=== PATIENT | female | born 1930 | race Caucasian/White ===

== ENCOUNTER 2017-06-03 18:33 | Emergency (ER) | payer MEDICARE, BC ==
[2017-06-03] MEDS ORDERED: Sodium Chloride 0.9% 1,000 ML IV SCH (19:30)
--- NOTE | 2017-06-03 19:34 | EDM.PDOC ---
ED HPI GENERAL MEDICAL PROBLEM - General Chief Complaint: Gastrointestinal Problem Stated Complaint: [facility] Time Seen by Provider: 06/03/17 19:27 Source of Information: Reports: Patient, Family (Daughter), Old Records, RN Notes Reviewed History Limitations: Reports: No Limitations - History of Present Illness INITIAL COMMENTS - FREE TEXT/NARRATIVE: EMS arrival Chief complaint Diarrhea, weakness History of present illness 87-year-old female who lives on her own apartment, talks to her daughter daily Was well earlier today but at 2 PM started developing diarrhea, no abdominal pain no nausea no vomiting no cramping several episodes then about 5 PM she went to lay down, but felt so well she went back to the bathroom, incontinent of stool, and then continue to pass a large amount of diarrhea in the toilet. Towards the end there was some bright red bleeding with some clots. She went to stand up and felt very weak and then that herself down to the floor. When she laid down she actually bumped her personal alarm, EMS was notified as was feels a bit better now, not quite as weak. No abdominal pain No fever No sick contacts like this History of ulcerative colitis and has had some bleeding in the remote past. She stopped her ulcerative clivus medication a year ago with insurance no longer covered it. Her last colonoscopy was 6 years ago and she was told she didn't need to have it anymore. No history of peptic ulcer Does not use any NSAIDs apart from 81 mg of aspirin daily denies Pain Score (Numeric/FACES): 0 - Related Data Allergies Allergy/AdvReac Type Severity Reaction Status Date / Time niacin Allergy Rash Verified 06/03/17 18:42 pravastatin Allergy Leg Cramps Verified 06/03/17 18:42 simvastatin Allergy Leg Cramps Verified 06/03/17 18:42 Home Meds: Home Meds Aspirin 81 mg PO DAILY 03/07/13 [History] Calcium Carbonate/Vitamin D3 [Calcium 600 + Vit D Tablet] 1 tab PO DAILY [History] Carvedilol 3.125 mg PO DAILY 03/07/13 [History] Glucosamine/D3/Boswellia Mell [Glucosamine Complex Tablet] 1 tab PO DAILY 03/07 [History] Multivitamin [Multivitamins] 1 tab PO DAILY 03/07/13 [History] [place]-3/DHA/Epa/Fish Oil [Fish Oil 1,000 mg Softgel] 1 cap PO DAILY 03/07/13 [ History] Omeprazole 40 mg PO DAILY PRN 03/07/13 [History] Acyclovir [Zovirax] 1 tab PO BID 06/03/17 [History] Brinzolamide/Brimonidine Tart [Simbrinza 1%-0.2% Eye Drops] 1 drop TOP BEDTIME 06/03/17 [History] Travoprost [Travatan Z] 1 drop TOP DAILY 06/03/17 [History] prednisoLONE Acetate [Prednisolone Acetate] 1 drop TOP DAILY 06/03/17 [History] Past Medical History HEENT History: Reports: Glaucoma, Impaired Vision Cardiovascular History: Reports: High Cholesterol, Stents Gastrointestinal History: Reports: Other (See Below) Other Gastrointestinal History: hx of ulcerative cholitis 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: Musculoskeletal History: Reports: Fracture, Osteoarthritis Other Musculoskeletal History: r ankle fx Hematologic History: Reports: Blood Transfusion(s) Oncologic (Cancer) History: Reports: Other (See Below) Other Oncologic History: skin - Infectious Disease History Infectious Disease History: Reports: Chicken Pox, Measles, Mumps, Other (See Below) - Past Surgical History HEENT Surgical History: Reports: Cataract Surgery GI Surgical History: Reports: Colonoscopy Dermatological Surgical History: Reports: Skin Biopsy, Other (See Below) Social & Family History - Tobacco Use Smoking Status *Q: Never Smoker Second Hand Smoke Exposure: No - Caffeine Use Caffeine Use: Reports: Coffee, Soda, Tea - Alcohol Use Days Per Week of Alcohol Use: 0 Number of Drinks Per Day: 1 Total Drinks Per Week: 0 - Recreational Drug Use Recreational Drug Use: No ED ROS GENERAL - Review of Systems Review Of Systems: See Below Constitutional: Reports: Malaise, Weakness. Denies: Fever, Diaphoresis, Decreased Appetite HEENT: Reports: No Symptoms Respiratory: Reports: No Symptoms Cardiovascular: Reports: No Symptoms Endocrine: Reports: No Symptoms GI/Abdominal: Reports: Bloody Stool, Diarrhea. Denies: Abdominal Pain, Black Stool, Constipation, Hematemesis, Melena, Nausea, Vomiting : Reports: No Symptoms Musculoskeletal: Reports: No Symptoms Skin: Reports: Other (Recent treatment for skin lesions on her face) Neurological: Reports: Weakness (Lightheaded at home) Psychiatric: Reports: No Symptoms Immunologic: Reports: No Symptoms ED EXAM, GI/ABD - Physical Exam Exam: See Below Exam Limited By: No Limitations General Appearance: Alert, Mild Distress, Other (Looks well, elevated blood pressure other vital signs normal, no difficulty speaking or breathing) Eyes: Bilateral: Normal Appearance, EOMI Ears: Normal External Exam, Hearing Grossly Normal Nose: Normal Inspection Throat/Mouth: Normal Voice, Other (Dry mouth and tongue) Head: Atraumatic Neck: Normal Inspection, Supple. No: Lymphadenopathy (R), Lymphadenopathy (L) Respiratory/Chest: No Respiratory Distress, Lungs Clear, No Accessory Muscle Use Cardiovascular: Normal Peripheral Pulses, Regular Rate, Rhythm GI/Abdominal Exam: Normal Bowel Sounds, Soft, Non-Tender. No: Guarding, Rigid, Tender Rectal (Female) Exam: Other (2 small external skin tags, one small internal fissure right at the anal margin, no active bleeding currently) Extremities: Normal Inspection, No Pedal Edema Neurological: Alert, Oriented, Normal Cognition, No Motor/Sensory Deficits Psychiatric: Normal Mood Skin Exam: Warm, Dry, Intact, Normal Color, Other (2 abraded areas on her face from recent lesion treatment) Course - Vital Signs Last Recorded V/S: Last Vital Signs Temp 36.3 C 06/03/17 18:42 Pulse 77 06/03/17 21:16 Resp 16 06/03/17 18:42 BP 153/83 H 06/03/17 21:16 Pulse Ox 94 L 06/03/17 21:16 - Orders/Labs/Meds Orders: Active Orders 24 hr Category Date Time Status Peripheral IV Care [RC] . DIRECTED Care 06/03/17 19:28 Active Sodium Chloride 0.9% [Normal Saline] 1,000 ml Med 06/03/17 19:30 Active IV ASDIRECTED Peripheral IV Insertion Adult [OM.PC] Routine Oth 06/03/17 19:28 Ordered Medication Orders Sodium Chloride (Normal Saline) 1,000 mls @ 500 mls/hr IV ASDIRECTED [facility] Last Admin: 06/03/17 19:45 Dose: 500 mls/hr Labs: Laboratory Tests 06/03/17 06/03/17 Range/Units 19:40 19:40 WBC 8.9 (4.5-11.0) K/uL RBC 3.86 (3.30-5.50) M/uL Hgb 12.3 (12.0-15.0) g/dL Hct 37.5 (36.0-48.0) % MCV 97 (80-98) fL MCH 32 H (27-31) pg MCHC 33 (32-36) % Plt Count 262 (150-400) K/uL Sodium 142 (140-148) mmol/L Potassium 5.2 (3.6-5.2) mmol/L Chloride 107 (100-108) mmol/L Carbon Dioxide 26 (21-32) mmol/L Anion Gap 9.4 (5.0-14.0) mmol/L BUN 19 H (7-18) mg/dL Creatinine 0.8 (0.6-1.0) mg/dL Est Cr Clr Drug Dosing 37.71 mL/min Estimated GFR (MDRD) > 60 (>60) Glucose 151 H (74-106) mg/dL Calcium 8.6 (8.5-10.1) mg/dL Meds: Medications Generic Name Dose Route Start Last Admin Trade Name Freq PRN Reason Stop Dose Admin Sodium Chloride 1,000 mls @ 500 mls/hr 06/03/17 19:30 06/03/17 19:45 Normal Saline IV 500 mls/hr ASDIRECTED [facility] Administration - Re-Assessments/Exams Free Text/Narrative Re-Assessment/Exam: 06/03/17 19:34 87-year-old female with several episodes of diarrhea becoming more intense after 5 PM, associated with some lightheadedness and weakness which has improved. No abdominal pain. Some rectal bleeding which clotted. History of ulcerative colitis Most likely gastroenteritis with bleeding coming from either internal hemorrhoids or local proctitis. Unlikely to be due to ulcerative colitis. Intravenous saline and labs ordered Not in any abdominal pain or nausea so no medications required at this time 06/03/17 20:45 Feeling well CBC BMP essentially normal apart from mild elevation BUN No diarrhea since arrival 06/03/17 21:37 Remained stable, has received a liter of IV saline, stable for discharge home Departure - Departure Time of Disposition: 21:37 Disposition: Admitted As Inpatient 64 Preliminary Cause of *Q: Cardiac Arrest Condition: Good Clinical Impression: Acute gastroenteritis, Dehydration, moderate, Gastroenteritis, Rectal bleeding - Discharge Information Instructions: Viral Gastroenteritis, Adult, [id number], Gastrointestinal Bleeding Referrals: Suhas Plata MD [Primary Care Provider] - Forms: ED Department Discharge Additional Instructions: Drink plenty of fluids Started eating again when you feel that you are able You had a small amount of rectal bleeding Most likely this is due to a small hemorrhoid internally. Get rechecked if the bleeding is recurring, you may need to have treatment of the hemorrhoid if it's persistent Return to emergency if you have weakness, collapse, fainting, high fever, bad abdominal pain or other worsening symptoms - My Orders Last 24 Hours: My Active Orders 06/03/17 19:28 Peripheral IV Care [RC] . DIRECTED Peripheral IV Insertion Adult [OM.PC] Routine 06/03/17 19:30 Sodium Chloride 0.9% [Normal Saline] 1,000 ml IV ASDIRECTED - Assessment/Plan Last 24 Hours: My Active Orders 06/03/17 19:28 Peripheral IV Care [RC] . DIRECTED Peripheral IV Insertion Adult [OM.PC] Routine 06/03/17 19:30 Sodium Chloride 0.9% [Normal Saline] 1,000 ml IV ASDIRECTED
== END 2017-06-03 21:55 | disposition critical access hospital (66) ==
LOC: JP.ED 18:33
DX: K52.9 Noninfective gastroenteritis and colitis, unspecified (principal); K62.5 Hemorrhage of anus and rectum; E78.00 Pure hypercholesterolemia, unspecified; Z88.8 Allergy status to other drugs, medicaments and biological substances; Z79.899 Other long term (current) drug therapy; Z79.82 Long term (current) use of aspirin
CPT/HCPCS: 36415; 80048; 85027; 99285; J7040

== ENCOUNTER 2017-06-09 08:38 | Emergency (ER) | payer MEDICARE, BC ==
--- NOTE | 2017-06-09 09:29 | EDM.PDOC ---
ED HPI GENERAL MEDICAL PROBLEM - General Chief Complaint: Gastrointestinal Problem Stated Complaint: loose stools Time Seen by Provider: 06/09/17 09:15 Source of Information: Reports: Patient, Old Records History Limitations: Reports: No Limitations - History of Present Illness INITIAL COMMENTS - FREE TEXT/NARRATIVE: 87 yo female was seen here by Dr. Meyers this past Saturday. Since then she has had waxing and waning diarrhea, not as bad as last Saturday. 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 She has a pHx of ulcerative colitis so today decides she should come to the ER for a hemoccult test to help decide if this diarrhea is from her UC. She has not had pain, fever or nausea/vomiting. Feels weak. Has not followed up in the clinic. Onset Date: 06/03/17 Duration: Day(s):, Waxing/Waning Location: Reports: Abdomen Severity: Moderate (diarrhea has been mild to moderate since this past Saturday.) Improves with: Reports: None Worsens with: Reports: None Context: Reports: Other (Hx of ulcerative colitis) Associated Symptoms: Reports: Weakness. 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) (none) abd cramping Pain Score (Numeric/FACES): 2 - Related Data Allergies Allergy/AdvReac Type Severity Reaction Status Date / Time niacin Allergy Rash Verified 06/09/17 08:59 pravastatin Allergy Leg Cramps Verified 06/09/17 08:59 simvastatin Allergy Leg Cramps Verified 06/09/17 08:59 Home Meds: Home Meds Aspirin 81 mg PO DAILY 03/07/13 [History] Calcium Carbonate/Vitamin D3 [Calcium 600 + Vit D Tablet] 1 tab PO DAILY [History] Carvedilol 3.125 mg PO DAILY 03/07/13 [History] Glucosamine/D3/Boswellia Mell [Glucosamine Complex Tablet] 1 tab PO DAILY 03/07 [History] Multivitamin [Multivitamins] 1 tab PO DAILY 03/07/13 [History] [place]-3/DHA/Epa/Fish Oil [Fish Oil 1,000 mg Softgel] 1 cap PO DAILY 03/07/13 [ History] Omeprazole 40 mg PO DAILY PRN 03/07/13 [History] Acyclovir [Zovirax] 1 tab PO BID 06/03/17 [History] Brinzolamide/Brimonidine Tart [Simbrinza 1%-0.2% Eye Drops] 1 drop TOP BEDTIME 06/03/17 [History] Travoprost [Travatan Z] 1 drop TOP DAILY 06/03/17 [History] prednisoLONE Acetate [Prednisolone Acetate] 1 drop TOP DAILY 06/03/17 [History] Past Medical History HEENT History: Reports: Glaucoma, Impaired Vision Cardiovascular History: Reports: High Cholesterol, Stents Gastrointestinal History: Reports: Other (See Below) Other Gastrointestinal History: 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: Musculoskeletal History: Reports: Fracture, Osteoarthritis Other Musculoskeletal History: r ankle fx Hematologic History: Reports: Blood Transfusion(s) Oncologic (Cancer) History: Reports: Other (See Below) Other Oncologic History: skin - Infectious Disease History Infectious Disease History: Reports: Chicken Pox, Measles, Mumps, Other (See Below) - Past Surgical History HEENT Surgical History: Reports: Cataract Surgery GI Surgical History: Reports: Colonoscopy Dermatological Surgical History: Reports: Skin Biopsy, Other (See Below) Social & Family History - Tobacco Use Smoking Status *Q: Never Smoker Second Hand Smoke Exposure: No - Caffeine Use Caffeine Use: Reports: Coffee - Alcohol Use Days Per Week of Alcohol Use: 2 Number of Drinks Per Day: 1 Total Drinks Per Week: 2 - Recreational Drug Use Recreational Drug Use: No ED ROS GENERAL - Review of Systems Review Of Systems: See Below Constitutional: Reports: Weakness HEENT: Reports: No Symptoms Respiratory: Reports: No Symptoms Cardiovascular: Reports: No Symptoms GI/Abdominal: Reports: Diarrhea. Denies: Black Stool, Bloody Stool, Constipation, Hematemesis, Hematochezia, Melena, Nausea, Vomiting : Reports: No Symptoms Musculoskeletal: Reports: No Symptoms Skin: Reports: No Symptoms Neurological: Reports: No Symptoms ED EXAM, GI/ABD - Physical Exam Exam: See Below Exam Limited By: No Limitations General Appearance: Alert, WD/WN, No Apparent Distress Eyes: Bilateral: Normal Appearance Ears: Normal External Exam, Normal Canal, Hearing Grossly Normal, Normal TMs Nose: Normal Inspection, Normal Mucosa, No Blood Throat/Mouth: Normal Inspection, Normal Lips, Normal Oropharynx, Normal Voice, No Airway Compromise Head: Atraumatic, Normocephalic Neck: Normal Inspection, Supple Respiratory/Chest: No Respiratory Distress, Lungs Clear, Normal Breath Sounds, No Accessory Muscle Use Cardiovascular: Regular Rate, Rhythm, No Edema GI/Abdominal Exam: Normal Bowel Sounds, Soft, Non-Tender, No Distention, Other ( unremarkable rectal exam with jeronimo, soft stool noted on glove.) Back Exam: Normal Inspection. No: CVA Tenderness (R), CVA Tenderness (L) Extremities: Normal Inspection, Normal Range of Motion, Non-Tender, No Pedal Edema Neurological: Alert, Oriented, CN II-XII Intact, Normal Cognition Psychiatric: Normal Affect, Normal Mood Skin Exam: Warm, Dry, Intact, Normal Color, No Rash Course - Vital Signs Last Recorded V/S: Last Vital Signs Temp 36.6 C 06/09/17 09:04 Pulse 82 06/09/17 09:04 Resp 18 06/09/17 09:04 BP 124/64 06/09/17 09:04 Pulse Ox 98 06/09/17 09:04 Orthostatic Blood Pressure [ 108/58 Standing] Orthostatic Blood Pressure [ 104/62 Sitting] Orthostatic Blood Pressure [ 110/68 Supine] - Orders/Labs/Meds Orders: Active Orders 24 hr Category Date Time Status Orthostatic Vital Signs [RC] ASDIRECTED Care 06/09/17 08:51 Active Labs: Laboratory Tests 06/09/17 06/09/17 Range/Units 08:51 09:03 WBC 5.2 (4.5-11.0) K/uL RBC 3.20 L (3.30-5.50) M/uL Hgb 10.6 L (12.0-15.0) g/dL Hct 31.1 L (36.0-48.0) % MCV 97 (80-98) fL MCH 33 H (27-31) pg MCHC 34 (32-36) % Plt Count 273 (150-400) K/uL Sodium 140 (140-148) mmol/L Potassium 4.2 (3.6-5.2) mmol/L Chloride 107 (100-108) mmol/L Carbon Dioxide 23 (21-32) mmol/L Anion Gap 9.9 (5.0-14.0) mmol/L BUN 12 (7-18) mg/dL Creatinine 0.7 (0.6-1.0) mg/dL Est Cr Clr Drug Dosing TNP Estimated GFR (MDRD) > 60 (>60) Glucose 123 H (74-106) mg/dL Calcium 8.3 L (8.5-10.1) mg/dL C-Reactive Protein 1.51 H (0.0-0.3) mg/dL Departure - Departure Time of Disposition: 09:35 Disposition: Home, Self-Care 01 Condition: Good Clinical Impression: Diarrhea, Mild anemia - Discharge Information Referrals: Suhas Plata MD [Primary Care Provider] - Forms: ED Department Discharge - My Orders Last 24 Hours: My Active Orders 06/09/17 08:51 Orthostatic Vital Signs [RC] ASDIRECTED - Assessment/Plan Last 24 Hours: My Active Orders 06/09/17 08:51 Orthostatic Vital Signs [RC] ASDIRECTED
== END 2017-06-09 09:47 | disposition home or self-care (01) ==
LOC: JP.ED 08:38
DX: R19.7 Diarrhea, unspecified (principal); D64.9 Anemia, unspecified; E78.00 Pure hypercholesterolemia, unspecified; Z79.82 Long term (current) use of aspirin; Z79.899 Other long term (current) drug therapy; Z88.8 Allergy status to other drugs, medicaments and biological substances
CPT/HCPCS: 36415; 80048; 82272; 85027; 86140; 99284

== ENCOUNTER 2017-11-07 09:02 | Emergency (ER) | payer MEDICARE, BC ==
--- NOTE | 2017-11-07 09:53 | EDM.PDOC ---
ED HPI GENERAL MEDICAL PROBLEM - General Chief Complaint: Syncope Stated Complaint: MED[facility] Time Seen by Provider: 11/07/17 09:50 Source of Information: Reports: Patient History Limitations: Reports: No Limitations - History of Present Illness INITIAL COMMENTS - FREE TEXT/NARRATIVE: pt was at the [employer] and she was having her hair done. The pt passed out and she was out for about 7 minutes. She was responsive when the ambulance arrived. She did not have dizziness and she did not have chest pain. Onset: Today, Sudden Duration: Hour(s): Location: Reports: Head, Other (pt passed out and was unresponsive. 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 - Related Data Allergies Allergy/AdvReac Type Severity Reaction Status Date / Time niacin Allergy Rash Verified 11/07/17 09:15 pravastatin Allergy Leg Cramps Verified 11/07/17 09:15 simvastatin Allergy Leg Cramps Verified 11/07/17 09:15 Home Meds: Home Meds Aspirin 81 mg PO DAILY 03/07/13 [History] Calcium Carbonate/Vitamin D3 [Calcium 600 + Vit D Tablet] 1 tab PO DAILY [History] Carvedilol 3.125 mg PO DAILY 03/07/13 [History] Glucosamine/D3/Boswellia Mell [Glucosamine Complex Tablet] 1 tab PO DAILY 03/07 [History] Multivitamin [Multivitamins] 1 tab PO DAILY 03/07/13 [History] Omeprazole 40 mg PO DAILY PRN 03/07/13 [History] Acyclovir [Zovirax] 1 tab PO BID 06/03/17 [History] Brinzolamide/Brimonidine Tart [Simbrinza 1%-0.2% Eye Drops] 1 drop TOP BEDTIME 06/03/17 [History] Travoprost [Travatan Z] 1 drop TOP DAILY 06/03/17 [History] prednisoLONE Acetate [Prednisolone Acetate] 1 drop TOP DAILY 06/03/17 [History] Past Medical History HEENT History: Reports: Glaucoma, Impaired Vision Cardiovascular History: Reports: High Cholesterol, Stents Gastrointestinal History: Reports: Other (See Below) Other Gastrointestinal History: hx of ulcerative cholitis [employer]ER History: Reports: Musculoskeletal History: Reports: Fracture, Osteoarthritis Other Musculoskeletal History: r ankle fx Hematologic History: Reports: Blood Transfusion(s) Oncologic (Cancer) History: Reports: Other (See Below) Other Oncologic History: skin Dermatologic History: Reports: None - Infectious Disease History Infectious Disease History: Reports: Chicken Pox, Measles, Mumps, Pertussis ( Whooping Cough) - Past Surgical History Head Surgeries/Procedures: Reports: None HEENT Surgical History: Reports: Cataract Surgery Cardiovascular Surgical History: Reports: None GI Surgical History: Reports: Colonoscopy Musculoskeletal Surgical History: Reports: None Oncologic Surgical History: Reports: None Dermatological Surgical History: Reports: Skin Biopsy, Other (See Below) Social & Family History - Family History Family Medical History: Noncontributory - Tobacco Use Smoking Status *Q: Never Smoker Second Hand Smoke Exposure: No - Caffeine Use Caffeine Use: Reports: Coffee - Recreational Drug Use Recreational Drug Use: No ED ROS GENERAL - Review of Systems Review Of Systems: See Below Constitutional: Reports: No Symptoms HEENT: Reports: No Symptoms Respiratory: Reports: No Symptoms Cardiovascular: Reports: Syncope Endocrine: Reports: No Symptoms GI/Abdominal: Reports: No Symptoms : Reports: No Symptoms Musculoskeletal: Reports: No Symptoms Skin: Reports: No Symptoms Neurological: Reports: No Symptoms Psychiatric: Reports: No Symptoms ED EXAM, GENERAL - Physical Exam Exam: See Below Free Text/Narrative:: pt arrived looking quite pale. She passed out while she was getting her hair done today, She did not feel dizzy or like she was going to pass out earlier, She did not have chest pain. Exam Limited By: No Limitations General Appearance: Alert, Mild Distress, Other ( Pt she was stood up to do othostatiocs she got lite headed. She was given a liter of fluids and feels much better. pupils are equal and reactive. ) Ears: Normal TMs Ear Exam: Right Ear: Discharge Nose: Normal Inspection Throat/Mouth: Normal Inspection Head: Atraumatic Neck: Normal Inspection Respiratory/Chest: No Respiratory Distress Cardiovascular: Regular Rate, Rhythm GI/Abdominal: Soft, Non-Tender (Female) Exam: Deferred Rectal (Female) Exam: Deferred Back Exam: Normal Inspection Extremities: Normal Inspection Neurological: Alert, Oriented, Normal Cognition Psychiatric: Normal Affect Course - Vital Signs Last Recorded V/S: Last Vital Signs Temp 35.4 C 11/07/17 09:30 Pulse 64 11/07/17 09:30 Resp 21 H 11/07/17 09:30 BP 156/79 H 11/07/17 09:30 Pulse Ox 91 L 11/07/17 09:30 Orthostatic Blood Pressure [ 120/73 Standing] Orthostatic Blood Pressure [ 136/74 Sitting] Orthostatic Blood Pressure [ 133/66 Supine] - Orders/Labs/Meds Orders: Active Orders 24 hr Category Date Time Status EKG Documentation Completion [RC] ASDIRECTED Care 11/07/17 09:31 Active Orthostatic Vital Signs [RC] ASDIRECTED Care 11/07/17 10:23 Active UA W/MICROSCOPIC [URIN] Urgent Lab 11/07/17 10:13 Ordered Sodium Chloride 0.9% [Normal Saline] 1,000 ml Med 11/07/17 11:00 Active IV ASDIRECTED EKG 12 Lead [EK] Routine Ther 11/07/17 09:31 Ordered Medication Orders Sodium Chloride (Normal Saline) 1,000 mls @ 500 mls/hr IV ASDIRECTED GIUSEPPE Last Admin: 11/07/17 11:13 Dose: 500 mls/hr Labs: Laboratory Tests 11/07/17 11/07/17 11/07/17 Range/Units 09:30 09:30 09:30 WBC 7.4 (4.5-11.0) K/uL RBC 4.67 (3.30-5.50) M/uL Hgb 11.7 L (12.0-15.0) g/dL Hct 37.1 (36.0-48.0) % MCV 79 L (80-98) fL MCH 25 L (27-31) pg MCHC 32 (32-36) % Plt Count 282 (150-400) K/uL Neut % (Auto) 63 (36-66) % Lymph % (Auto) 21 L (24-44) % [place] % (Auto) 14 H (2-6) % Eos % (Auto) 2 (2-4) % Baso % (Auto) 0 (0-1) % Sodium 137 L (140-148) mmol/L Potassium 4.2 (3.6-5.2) mmol/L Chloride 103 (100-108) mmol/L Carbon Dioxide 26 (21-32) mmol/L Anion Gap 12.2 (5.0-14.0) mmol/L BUN 22 H D (7-18) mg/dL Creatinine 0.8 (0.6-1.0) mg/dL Est Cr Clr Drug Dosing 34.24 mL/min Estimated GFR (MDRD) > 60 (>60) Glucose 138 H (74-106) mg/dL Calcium 8.8 (8.5-10.1) mg/dL Total Bilirubin 0.6 (0.2-1.0) mg/dL AST 17 (15-37) U/L ALT 18 (12-78) U/L Alkaline Phosphatase 88 (46-116) U/L Troponin I < 0.017 (0.000-0.056) ng/mL Total Protein 6.5 (6.4-8.2) g/dL Albumin 3.2 L (3.4-5.0) g/dL Globulin 3.3 (2.3-3.5) g/dL Albumin/Globulin Ratio 1.0 L (1.2-2.2) Urine Color Urine Appearance Urine pH (4.5-8.0) Ur Specific [place]well (1.008-1.030) Urine Protein (NEGATIVE) mg/dL Urine Glucose (UA) (NEGATIVE) mg/dL Urine Ketones (NEGATIVE) mg/dL Urine Occult Blood (NEGATIVE) Urine Nitrite (NEGATIVE) Urine Bilirubin (NEGATIVE) Urine Urobilinogen (NORMAL) mg/dL Ur Leukocyte Esterase (NEGATIVE) Urine RBC (0-5) Urine WBC (0-5) Ur Epithelial Cells Amorphous Sediment Urine Bacteria Urine Mucus 11/07/17 Range/Units 10:13 WBC (4.5-11.0) K/uL RBC (3.30-5.50) M/uL Hgb (12.0-15.0) g/dL Hct (36.0-48.0) % MCV (80-98) fL MCH (27-31) pg MCHC (32-36) % Plt Count (150-400) K/uL Neut % (Auto) (36-66) % Lymph % (Auto) (24-44) % [place] % (Auto) (2-6) % Eos % (Auto) (2-4) % Baso % (Auto) (0-1) % Sodium (140-148) mmol/L Potassium (3.6-5.2) mmol/L Chloride (100-108) mmol/L Carbon Dioxide (21-32) mmol/L Anion Gap (5.0-14.0) mmol/L BUN (7-18) mg/dL Creatinine (0.6-1.0) mg/dL Est Cr Clr Drug Dosing mL/min Estimated GFR (MDRD) (>60) Glucose (74-106) mg/dL Calcium (8.5-10.1) mg/dL Total Bilirubin (0.2-1.0) mg/dL AST (15-37) U/L ALT (12-78) U/L Alkaline Phosphatase (46-116) U/L Troponin I (0.000-0.056) ng/mL Total Protein (6.4-8.2) g/dL Albumin (3.4-5.0) g/dL Globulin (2.3-3.5) g/dL Albumin/Globulin Ratio (1.2-2.2) Urine Color Yellow Urine Appearance Clear Urine pH 6.5 (4.5-8.0) Ur Specific [place] 1.015 (1.008-1.030) Urine Protein Negative (NEGATIVE) mg/dL Urine Glucose (UA) Normal (NEGATIVE) mg/dL Urine Ketones Negative (NEGATIVE) mg/dL Urine Occult Blood Negative (NEGATIVE) Urine Nitrite Negative (NEGATIVE) Urine Bilirubin Negative (NEGATIVE) Urine Urobilinogen 1 (NORMAL) mg/dL Ur Leukocyte Esterase Negative (NEGATIVE) Urine RBC 0-5 (0-5) Urine WBC 0-5 (0-5) Ur Epithelial Cells Few Amorphous Sediment Few Urine Bacteria Not seen Urine Mucus Not seen Meds: Medications Generic Name Dose Route Start Last Admin Trade Name Freq PRN Reason Stop Dose Admin Sodium Chloride 1,000 mls @ 500 mls/hr 11/07/17 11:00 11/07/17 11:13 Normal Saline IV 500 mls/hr ASDIRECTED [facility] Administration - Re-Assessments/Exams Free Text/Narrative Re-Assessment/Exam: 11/07/17 13:22 pt had a cat scan of the head which did not show acute changes, her lab work looked good. She had a mild anemia at 11.3. She had normal cardiac enzymes. She is ambulating well at this point. Departure - Departure Time of Disposition: 13:23 Disposition: Home, Self-Care 01 Condition: Fair Clinical Impression: Syncope, Anemia Referrals: PCP,None [Primary Care Provider] - Forms: ED Department Discharge Care Plan Goals: push fluids, holter monitor 48 hour, rtc if problems. - My Orders Last 24 Hours: My Active Orders 11/07/17 09:31 EKG Documentation Completion [RC] ASDIRECTED EKG 12 Lead [EK] Routine 11/07/17 10:13 UA W/MICROSCOPIC [URIN] Urgent 11/07/17 10:23 Orthostatic Vital Signs [RC] ASDIRECTED 11/07/17 11:00 Sodium Chloride 0.9% [Normal Saline] 1,000 ml IV ASDIRECTED - Assessment/Plan Last 24 Hours: My Active Orders 11/07/17 09:31 EKG Documentation Completion [RC] ASDIRECTED EKG 12 Lead [EK] Routine 11/07/17 10:13 UA W/MICROSCOPIC [URIN] Urgent 11/07/17 10:23 Orthostatic Vital Signs [RC] ASDIRECTED 11/07/17 11:00 Sodium Chloride 0.9% [Normal Saline] 1,000 ml IV ASDIRECTED
--- NOTE | 2017-11-07 10:10 | CR ---
CHEST: Portable CLINICAL HISTORY:Syncope COMPARISON:None FINDINGS: Heart size and pulmonary vascularity appear normal. There is a large retrocardiac hiatal h ernia. There are atherosclerotic changes in the aorta. Lung cook are clear. IMPRESSION: Large retrocardiac hiatal hernia No acute cardiopulmonary process
--- NOTE | 2017-11-07 10:51 | CT ---
Head wo Cont CLINICAL HISTORY: Syncope COMPARISON: None TECHNIQUE: Transverse scans were obtained from the base of the skull through the vertex without IV co ntrast on a multislice, multidetector CT scanner. Auto dosage reduction and iterative reconstruction techniques employed. FINDINGS: There is a focal area of low-attenuation involving the left basal ganglia. There is no mass effect, hemorrhage, or extraaxial collection. The basal cisterns and sulci over the convexities are prominent. The ventricles are mildly prominent. There is some mildly heterogeneous periventricular lucency. 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 Chronology is uncertain. This could be subacute. There is no evidence of hemorrhage Moderate atrophy Chronic ischemic microvascular changes
[2017-11-07] MEDS ORDERED: Sodium Chloride 0.9% 1,000 ML IV SCH (11:00)
== END 2017-11-07 13:53 | disposition home or self-care (01) ==
LOC: JP.ED 09:02
DX: R55 Syncope and collapse (principal); D64.9 Anemia, unspecified; Z88.8 Allergy status to other drugs, medicaments and biological substances; Z79.82 Long term (current) use of aspirin
CPT/HCPCS: 36415; 70450; 71045; 80053; 81001; 84484; 85025; 93005; 93225; 93226; 96360; 96361; 99285; J7030